=== PATIENT | male | born 1935 | race Caucasian/White ===

== ENCOUNTER → 2020-04-26 | Outpatient (CLI) | payer MEDICARE | LOC: KOH-I 11:23 | DX: R05 Cough (principal) | CPT/HCPCS: 71046 ==

== ENCOUNTER → 2020-11-26 | Outpatient (CLI) | payer MEDICARE ==
[2020-11-26 09:50] LABS: RED BLOOD COUNT 3.1 M/UL (4.20-5.50); WHITE BLOOD COUNT 7.4 K/UL (4.5-11.0)
== END ==
LOC: US 11-24 13:30
PROVIDERS: Internal Medicine Nephrology
DX: N18.30 Chronic kidney disease, stage 3 unspecified (principal); M10.9 Gout, unspecified; N40.0 Benign prostatic hyperplasia without lower urinary tract symptoms; N28.1 Cyst of kidney, acquired; N28.89 Other specified disorders of kidney and ureter
CPT/HCPCS: 36415; 80053; 82570; 83970; 84100; 84153; 84156; 84550; 85025

== ENCOUNTER → 2021-01-16 | Outpatient (CLI) | payer MEDICARE ==
[2021-01-16 17:19] LABS: HEMOGLOBIN 7.6 gm/dl (14.0-17.5)
== END ==
LOC: LAB 17:02
PROVIDERS: Internal Medicine Nephrology
DX: R53.81 Other malaise (principal); E63.1 Imbalance of constituents of food intake; N18.9 Chronic kidney disease, unspecified; D63.1 Anemia in chronic kidney disease
CPT/HCPCS: 36415; 85014; 85018; 86850; 86920

== ENCOUNTER → 2021-01-18 | Outpatient (CLI) | payer MEDICARE | LOC: OPSV 08:00 | DX: N17.9 Acute kidney failure, unspecified (principal); R53.81 Other malaise; E63.1 Imbalance of constituents of food intake; D64.9 Anemia, unspecified | CPT/HCPCS: 36430; J7050 ==

== ENCOUNTER 2021-02-15 14:31 | Emergency (ER) | payer MEDICARE ==
[2021-02-15 15:48] LABS: RED BLOOD COUNT 2.4 M/UL (4.20-5.50); WHITE BLOOD COUNT 6.9 K/UL (4.5-11.0)
[2021-02-15 16:01] LABS: HEMOGLOBIN 6.9 gm/dl (14.0-17.5)
[2021-02-15 16:02] LABS: BUN/CREATININE RATIO 5 (0-10)
== END 2021-02-15 20:45 | disposition home or self-care (01) ==
LOC: ER1 14:31
PROVIDERS: Emergency Medicine
DX: D64.9 Anemia, unspecified (principal); I12.0 Hypertensive chronic kidney disease with stage 5 chronic kidney disease or end stage renal disease; N18.6 End stage renal disease; Z85.528 Personal history of other malignant neoplasm of kidney
CPT/HCPCS: 36430; 80053; 82550; 82553; 83874; 84484; 85025; 86850; 86900; 86901; 86920; 99283; J7050; P9016

== ENCOUNTER 2021-03-11 15:07 | Inpatient (IN) | payer MEDICARE ==
[~2021-03-11] VITALS: Ht 172.7 cm; Wt 72.6 kg
[2021-03-11 16:23] LABS: RED BLOOD COUNT 2.32 M/UL (4.20-5.50); WHITE BLOOD COUNT 8.3 K/UL (4.5-11.0)
[2021-03-11 16:34] LABS: HEMOGLOBIN 6.7 gm/dl (14.0-17.5)
[2021-03-11] MEDS ORDERED: DOXAZOSIN MESYLA4 MG PO (18:05)
[2021-03-11] MEDS ORDERED: METOPROLOL TART25 MG PO (18:06)
[2021-03-11] MEDS ORDERED: RENVELA800 MG PO (18:06)
[2021-03-11] MEDS ORDERED: LISINOPRIL10 MG PO (18:07)
[2021-03-11] MEDS ORDERED: VITAMIN B-121000 MCG PO (18:07)
[2021-03-11] MEDS ORDERED: ASCORBIC ACID500 MG PO (18:07)
[2021-03-11] MEDS ORDERED: DAILY VALUE1 EACH PO (18:08)
[2021-03-12 04:36] LABS: RED BLOOD COUNT 2.26 M/UL (4.20-5.50); WHITE BLOOD COUNT 7.1 K/UL (4.5-11.0)
[2021-03-12 05:32] LABS: HEMOGLOBIN 6.6 gm/dl (14.0-17.5)
[2021-03-12 23:05] LABS: HEMOGLOBIN 6.9 gm/dl (14.0-17.5)
[2021-03-13 04:32] LABS: RED BLOOD COUNT 2.34 M/UL (4.20-5.50)
[2021-03-13 04:36] LABS: HEMOGLOBIN 6.8 gm/dl (14.0-17.5)
[2021-03-14 05:50] LABS: HEMOGLOBIN 7.6 gm/dl (14.0-17.5); WHITE BLOOD COUNT 7.5 K/UL (4.5-11.0)
[2021-03-14 05:53] LABS: RED BLOOD COUNT 2.62 M/UL (4.20-5.50)
[2021-03-14] MEDS ORDERED: LEVOFLOXACIN500 MG PO (08:52)
[2021-03-14 13:09] LABS: HGB A 97.4 % (96.4-98.8); HGB A2 2.6 % (1.8-3.2)
[2021-03-14 15:09] LABS: A/G RATIO 0.4 (0.7-1.7); ALBUMIN 2.5 g/dL (2.9-4.4); ALPHA-1-GLOBULIN 0.2 g/dL (0.0-0.4); ALPHA-2-GLOBULIN 0.5 g/dL (0.4-1.0); BETA GLOBULIN 4.3 g/dL (0.7-1.3); GAMMA GLOBULIN 0.8 g/dL (0.4-1.8); GLOBULIN, TOTAL 5.8 g/dL (2.2-3.9); PROTEIN, TOTAL, SERUM 8.3 g/dL (6.0-8.5)
[2021-03-15 09:40] LABS: HEMOGLOBIN 8.2 gm/dl (14.0-17.5); RED BLOOD COUNT 2.68 M/UL (4.20-5.50); WHITE BLOOD COUNT 6.2 K/UL (4.5-11.0)
[2021-03-16 04:09] LABS: HEMOGLOBIN 7.6 gm/dl (14.0-17.5); RED BLOOD COUNT 2.59 M/UL (4.20-5.50); WHITE BLOOD COUNT 6.2 K/UL (4.5-11.0)
[2021-03-16 12:14] LABS: M-SPIKE, % Comment: % (Not Observed); PROTEIN,TOTAL,URINE 197.5 mg/dL (Not Estab.)
[2021-03-17 04:47] LABS: HEMOGLOBIN 8.4 gm/dl (14.0-17.5); WHITE BLOOD COUNT 7.1 K/UL (4.5-11.0)
[2021-03-17 04:48] LABS: RED BLOOD COUNT 2.86 M/UL (4.20-5.50)
[2021-03-21 20:09] LABS: QUANTIFERON MITOGEN VALUE >10.00 IU/mL (.); QUANTIFERON NIL VALUE 0.12 IU/mL (.); QUANTIFERON TB1 AG VALUE 3.77 IU/mL (.); QUANTIFERON-TB GOLD PLUS Positive (Negative)
== END 2021-03-17 17:58 | disposition home or self-care (01) | DRG 177 ==
LOC: ER1 15:07 → MED SURG 4 16:43 → CDU 16:43 → MED SURG 4 17:52
PROVIDERS: Internal Medicine; Internal Medicine Nephrology; Preventive Medicine Occupational Medicine; ADMIT Internal Medicine
PROC: 30233N1 Transfusion of Nonautologous Red Blood Cells into Peripheral Vein, Percutaneous Approach (ICD-10-PCS; principal; 2021-03-12)
PROC: 5A1D70Z Performance of Urinary Filtration, Intermittent, Less than 6 Hours Per Day (ICD-10-PCS; 2021-03-14)
PROC: 5A1D70Z Performance of Urinary Filtration, Intermittent, Less than 6 Hours Per Day (ICD-10-PCS; 2021-03-16)
DX: J69.0 Pneumonitis due to inhalation of food and vomit (principal); N18.6 End stage renal disease; I12.0 Hypertensive chronic kidney disease with stage 5 chronic kidney disease or end stage renal disease; N25.81 Secondary hyperparathyroidism of renal origin; C90.00 Multiple myeloma not having achieved remission; E87.0 Hyperosmolality and hypernatremia; I47.1 Supraventricular tachycardia; J18.9 Pneumonia, unspecified organism; J15.9 Unspecified bacterial pneumonia; Y95 Nosocomial condition; D63.0 Anemia in neoplastic disease; Z20.822 Contact with and (suspected) exposure to COVID-19; E88.09 Other disorders of plasma-protein metabolism, not elsewhere classified; N40.0 Benign prostatic hyperplasia without lower urinary tract symptoms; Z99.2 Dependence on renal dialysis; Z85.528 Personal history of other malignant neoplasm of kidney; Z79.899 Other long term (current) drug therapy
CPT/HCPCS: 36415; 36430; 71045; 71250; 74150; 80048; 80053; 80202; 81001; 83020; 83690; 83735; 83883; 84155; 84156; 84165; 84166; 85014; 85018; 85025; 85027; 85652; 86140; 86335; 87040; 87086; 90935; 90937; 93005; 93270; 94760; 96374; 99285; J0692; J0696; J3370; J7030; J7050; P9016; P9040; U0002

== ENCOUNTER → 2021-03-11 | Outpatient (CLI) | payer MEDICARE ==
[~2021-03-11] MED LIST: ASCORBIC ACID500 MG PO; DAILY VALUE1 EACH PO; DOXAZOSIN MESYLA4 MG PO; LEVOFLOXACIN500 MG PO; LISINOPRIL10 MG PO; METOPROLOL TART25 MG PO; RENVELA800 MG PO; VITAMIN B-121000 MCG PO
== END ==
LOC: OPSV 08:00
DX: D64.9 Anemia, unspecified (principal); R93.7 Abnormal findings on diagnostic imaging of other parts of musculoskeletal system
CPT/HCPCS: 36430; J7050

== ENCOUNTER 2021-05-06 20:37 | Inpatient (IN) | payer MEDICARE ==
[~2021-05-06] VITALS: Ht 175.3 cm; Wt 71.8 kg
[~2021-05-06 20:37] MED LIST changes: +METOPROLOL SUCC25 MG PO; -METOPROLOL TART25 MG PO
[2021-05-06 22:02] LABS: HEMOGLOBIN 7.4 gm/dl (14.0-17.5); RED BLOOD COUNT 2.61 M/UL (4.20-5.50); WHITE BLOOD COUNT 4.8 K/UL (4.5-11.0)
[2021-05-08 07:47] LABS: RED BLOOD COUNT 2.4 M/UL (4.20-5.50)
[2021-05-08 07:59] LABS: WHITE BLOOD COUNT 3.5 K/UL (4.5-11.0)
[2021-05-08 08:02] LABS: HEMOGLOBIN 6.9 gm/dl (14.0-17.5)
[2021-05-08 18:19] LABS: HEMOGLOBIN 7.1 gm/dl (14.0-17.5)
--- NOTE | 2021-05-08 23:22 | NUR ---
[id number] PATIENTS VITALS BP 167/82, T 102.7, O2 SAT 94%, HR 82. CONTACTED PROVIDER REGARDING TEMP AND WAS INSTRUCTED TO GIVE TYLENOL. WILL CONTINUE TO OMONITOR AND ASSESS PATIENT
[2021-05-09 07:01] LABS: HEMOGLOBIN 7.4 gm/dl (14.0-17.5); RED BLOOD COUNT 2.51 M/UL (4.20-5.50); WHITE BLOOD COUNT 2.9 K/UL (4.5-11.0)
--- NOTE | 2021-05-09 15:32 | NUR ---
ONCOLOGY NOTIFIED OF PATIENT BEING INPATIENT AT [facility] PER FAMILY REQUEST. MESSAGE LEFT [facility] NURSE.
[2021-05-10 07:01] LABS: RED BLOOD COUNT 2.42 M/UL (4.20-5.50)
[2021-05-10 07:35] LABS: WHITE BLOOD COUNT 1.9 K/UL (4.5-11.0)
[2021-05-11 06:26] LABS: HEMOGLOBIN 8.4 gm/dl (14.0-17.5); WHITE BLOOD COUNT 2.1 K/UL (4.5-11.0)
[2021-05-11 06:29] LABS: RED BLOOD COUNT 2.83 M/UL (4.20-5.50)
[2021-05-11] MEDS ORDERED: BACTRIM 400-801 EACH PO (15:22)
[2021-05-11] MEDS ORDERED: ASPIRIN EC81 MG PO (15:22)
[2021-05-11] MEDS ORDERED: FAMOTIDINE10 MG PO (15:33)
--- NOTE | 2021-05-12 04:34 | NUR ---
PATIENT WAS OFF FLOOR FOR DIALYSIS DURING SHIFT CHANGE. WHEN JANUSZ THE [facility] DIRECTOR CALLED REPORT SHE STATED "DR MENSAH SAW THE PATIENT ON THE DIALYSIS UNIT AND SAID 3 HR WAS ENOUGH. A TOTAL OF 1000 ML OF FLUID WAS REMOVED AND THE PATIENTS BP WAS 98/72 AND HR 74".
[2021-05-12 07:18] LABS: HEMOGLOBIN 8.4 gm/dl (14.0-17.5); RED BLOOD COUNT 2.83 M/UL (4.20-5.50); WHITE BLOOD COUNT 2.1 K/UL (4.5-11.0)
[2021-05-13 07:38] LABS: HEMOGLOBIN 8.8 gm/dl (14.0-17.5); RED BLOOD COUNT 3.05 M/UL (4.20-5.50)
[2021-05-13 07:40] LABS: WHITE BLOOD COUNT 3.9 K/UL (4.5-11.0)
--- NOTE | 2021-05-13 15:09 | NUR ---
PATIENT RETURNED FROM DIALYSIS. 2LITERS REMOVED. PATIENT TOLERATED WELL. NO DISTRESS NOTED. WCTM.
[2021-05-14 07:33] LABS: HEMOGLOBIN 9.2 gm/dl (14.0-17.5); RED BLOOD COUNT 3.14 M/UL (4.20-5.50)
[2021-05-14 07:34] LABS: WHITE BLOOD COUNT 5.3 K/UL (4.5-11.0)
[2021-05-14] MEDS ORDERED: AMLODIPINE BESYL5 MG PO (09:00)
[2021-05-14] MEDS ORDERED: LOKELMA5 GM PO (09:00)
== END 2021-05-14 10:04 | disposition home or self-care (01) | DRG 314 ==
LOC: ER1 20:37 → CDU 23:47 → M/S 23:47
PROVIDERS: Emergency Medicine; Internal Medicine; Registered Nurse; ADMIT Internal Medicine
PROC: B24BZZ4 Ultrasonography of Heart with Aorta, Transesophageal (ICD-10-PCS; 2021-05-07)
PROC: 02PYX3Z Removal of Infusion Device from Great Vessel, External Approach (ICD-10-PCS; 2021-05-07)
PROC: 30233N1 Transfusion of Nonautologous Red Blood Cells into Peripheral Vein, Percutaneous Approach (ICD-10-PCS; 2021-05-08)
PROC: 5A1D70Z Performance of Urinary Filtration, Intermittent, Less than 6 Hours Per Day (ICD-10-PCS; principal; 2021-05-10)
PROC: 0JH63XZ Insertion of Tunneled Vascular Access Device into Chest Subcutaneous Tissue and Fascia, Percutaneous Approach (ICD-10-PCS; 2021-05-11)
PROC: 02HV33Z Insertion of Infusion Device into Superior Vena Cava, Percutaneous Approach (ICD-10-PCS; 2021-05-11)
PROC: B548ZZA Ultrasonography of Superior Vena Cava, Guidance (ICD-10-PCS; 2021-05-11)
PROC: 5A1D70Z Performance of Urinary Filtration, Intermittent, Less than 6 Hours Per Day (ICD-10-PCS; 2021-05-12)
PROC: 5A1D70Z Performance of Urinary Filtration, Intermittent, Less than 6 Hours Per Day (ICD-10-PCS; 2021-05-14)
DX: T80.211A Bloodstream infection due to central venous catheter, initial encounter (principal); N18.6 End stage renal disease; D61.810 Antineoplastic chemotherapy induced pancytopenia; J69.0 Pneumonitis due to inhalation of food and vomit; R78.81 Bacteremia; C90.00 Multiple myeloma not having achieved remission; I12.0 Hypertensive chronic kidney disease with stage 5 chronic kidney disease or end stage renal disease; D84.9 Immunodeficiency, unspecified; C79.51 Secondary malignant neoplasm of bone; C64.2 Malignant neoplasm of left kidney, except renal pelvis; C64.1 Malignant neoplasm of right kidney, except renal pelvis; Z20.822 Contact with and (suspected) exposure to COVID-19; T45.1X5A Adverse effect of antineoplastic and immunosuppressive drugs, initial encounter; I08.3 Combined rheumatic disorders of mitral, aortic and tricuspid valves; I27.20 Pulmonary hypertension, unspecified; B96.89 Other specified bacterial agents as the cause of diseases classified elsewhere; E87.6 Hypokalemia; D63.1 Anemia in chronic kidney disease; N30.90 Cystitis, unspecified without hematuria; Y83.8 Other surgical procedures as the cause of abnormal reaction of the patient, or of later complication, without mention of misadventure at the time of the procedure; Z99.2 Dependence on renal dialysis; Z82.49 Family history of ischemic heart disease and other diseases of the circulatory system; Z88.5 Allergy status to narcotic agent; Z88.8 Allergy status to other drugs, medicaments and biological substances; Z91.041 Radiographic dye allergy status
CPT/HCPCS: ECHO; 0240U; 36415; 36430; 71045; 71250; 77001; 80048; 80053; 80202; 82728; 83540; 83550; 83605; 83615; 83735; 84550; 85007; 85014; 85018; 85025; 85027; 86850; 86900; 86901; 86920; 87040; 90937; 93005; 93306; 96374; 99285; C1750; C1769; C1788; C1894; J0692; J1100; J1200; J1442; J1642; J1644; J2001; J2250; J2310; J2405; J2704; J3010; J3370; J7040; J7070; J7120; P9016; U0002

== ENCOUNTER 2021-06-04 10:47 | Emergency (ER) | payer MEDICARE ==
[~2021-06-04 10:47] MED LIST changes: +AMLODIPINE BESYL5 MG PO; +ASPIRIN EC81 MG PO; +BACTRIM 400-801 EACH PO; +FAMOTIDINE10 MG PO; +LOKELMA5 GM PO
[2021-06-04 12:00] LABS: RED BLOOD COUNT 2.19 M/UL (4.20-5.50); WHITE BLOOD COUNT 4.5 K/UL (4.5-11.0)
[2021-06-04 12:04] LABS: HEMOGLOBIN 6.7 gm/dl (14.0-17.5)
[2021-06-04 12:37] LABS: BUN/CREATININE RATIO 4 (0-10)
== END 2021-06-04 16:00 | disposition home or self-care (01) ==
LOC: ER1 10:47
PROVIDERS: Emergency Medicine
DX: I12.9 Hypertensive chronic kidney disease with stage 1 through stage 4 chronic kidney disease, or unspecified chronic kidney disease (principal); N18.9 Chronic kidney disease, unspecified; D63.1 Anemia in chronic kidney disease; Z85.79 Personal history of other malignant neoplasms of lymphoid, hematopoietic and related tissues
CPT/HCPCS: 36430; 80053; 82550; 82553; 82607; 82728; 82746; 83540; 83550; 83874; 84484; 85025; 86850; 86900; 86901; 86920; 93005; 99284; P9016

== ENCOUNTER → 2021-06-09 | Outpatient (CLI) | payer MEDICARE ==
[2021-06-09 11:58] LABS: HEMOGLOBIN 8.4 gm/dl (14.0-17.5); RED BLOOD COUNT 2.76 M/UL (4.20-5.50); WHITE BLOOD COUNT 6.6 K/UL (4.5-11.0)
== END ==
LOC: LAB 11:19
PROVIDERS: Internal Medicine
DX: D49.512 Neoplasm of unspecified behavior of left kidney (principal); R93.7 Abnormal findings on diagnostic imaging of other parts of musculoskeletal system
CPT/HCPCS: 36415; 85025

== ENCOUNTER → 2021-07-25 | Outpatient (CLI) | payer MEDICARE ==
[2021-07-25 15:54] LABS: HEMOGLOBIN 7.7 gm/dl (14.0-17.5)
== END ==
LOC: LAB 15:05
PROVIDERS: Internal Medicine
DX: D49.512 Neoplasm of unspecified behavior of left kidney (principal); R93.7 Abnormal findings on diagnostic imaging of other parts of musculoskeletal system
CPT/HCPCS: 36415; 85014; 85018; 86850; 86900; 86901; 86920; J7050

== ENCOUNTER → 2021-07-26 | Outpatient (CLI) | payer MEDICARE | LOC: OPSV 09:00 | DX: D49.512 Neoplasm of unspecified behavior of left kidney (principal); R93.7 Abnormal findings on diagnostic imaging of other parts of musculoskeletal system | CPT/HCPCS: 36430 ==

== ENCOUNTER → 2021-08-04 | Outpatient (CLI) | payer MEDICARE | LOC: OPSV 08:30 | DX: D49.512 Neoplasm of unspecified behavior of left kidney (principal); R93.7 Abnormal findings on diagnostic imaging of other parts of musculoskeletal system | CPT/HCPCS: 36430; P9016 ==

== ENCOUNTER → 2021-09-02 | Outpatient (CLI) | payer MEDICARE | LOC: KOH-I 08:49 | DX: D49.512 Neoplasm of unspecified behavior of left kidney (principal); R93.7 Abnormal findings on diagnostic imaging of other parts of musculoskeletal system; J90 Pleural effusion, not elsewhere classified | CPT/HCPCS: 71250; 74176 ==

== ENCOUNTER → 2021-09-20 | Outpatient (CLI) | payer MEDICARE ==
[2021-09-20 09:33] LABS: HEMOGLOBIN 7.1 gm/dl (14.0-17.5)
== END ==
LOC: OPSV 09-15 11:00
PROVIDERS: Internal Medicine
DX: C90.00 Multiple myeloma not having achieved remission (principal); D49.512 Neoplasm of unspecified behavior of left kidney; D64.9 Anemia, unspecified
CPT/HCPCS: 36430; 85014; 85018; 86850; 86900; 86901; 86920; J7050; P9016

== ENCOUNTER → 2021-10-27 | Outpatient (CLI) | payer MEDICARE | LOC: OPSV 09:05 | DX: D64.9 Anemia, unspecified (principal); D49.512 Neoplasm of unspecified behavior of left kidney | CPT/HCPCS: 36430 ==

== ENCOUNTER → 2021-11-30 | Outpatient (CLI) | payer MEDICARE ==
[2021-11-30 16:25] LABS: HEMOGLOBIN 8.2 gm/dl (14.0-17.5)
== END ==
LOC: LAB 14:51
PROVIDERS: Internal Medicine
DX: C90.00 Multiple myeloma not having achieved remission (principal); D49.512 Neoplasm of unspecified behavior of left kidney; D64.9 Anemia, unspecified
CPT/HCPCS: 36415; 85014; 85018; 86850; 86900; 86901; 86920; J7050; P9016

== ENCOUNTER → 2022-01-06 | Outpatient (CLI) | payer MEDICARE ==
[2022-01-06 10:42] LABS: HEMOGLOBIN 7.3 gm/dl (14.0-17.5)
== END ==
LOC: OPSV 10:18
PROVIDERS: Internal Medicine Nephrology
DX: D64.9 Anemia, unspecified (principal)
CPT/HCPCS: 36430; 85014; 85018; 86850; 86900; 86901; 86920; J7050; P9016